=== PATIENT | female | born 1985 | race Caucasian/White ===

== ENCOUNTER 2020-01-01 14:49 | Emergency (ER) | payer OTHER ==
[2020-01-01] MEDS ORDERED: Sodium Chloride 0.9% 1,000 ML IV ONE (15:23)
--- NOTE | 2020-01-01 15:37 | EDM.PDOC ---
ED HPI GENERAL MEDICAL PROBLEM - General Chief Complaint: Neurological Problem Stated Complaint: HEADACHE, BLURRED VISION Time Seen by Provider: 01/01/20 15:05 Source of Information: Reports: Patient History Limitations: Reports: No Limitations - History of Present Illness INITIAL COMMENTS - FREE TEXT/NARRATIVE: This 34 yo female patient reports to the ED with a headache, intermittent blurred vision and difficulties remembering things. The patient reports she was diagnosed with COVID on November 09 and started to feel better about 2 weeks after the diagnosis. The patient reports she has noticed she has continued to have headaches, blurred vision and memory difficulties. The patient is is [place] for [employer] and was advised to come to the ED due to her having di fficulties remembering people she has known in the past. The patient reports that she has an up coming appointment with Neurology and NeuroPsych, but is concerned as her symptoms seem to be getting worse. The patient reports she did also loose her senses of taste and smell with the COVID, and has not had return of those senses at this time. Duration: Day(s):, Intermittent Location: Reports: Head Quality: Reports: Other Severity: Moderate Improves with: Reports: None Worsens with: Reports: None Context: Reports: Other Associated Symptoms: Reports: No Other Symptoms Headache Pain Score (Numeric/FACES): 4 - Related Data Allergies Allergy/AdvReac Type Severity Reaction Status Date / Time amoxicillin Allergy Rash Verified 01/01/20 15:07 vancomycin Allergy Rash Verified 01/01/20 15:07 Home Meds: Home Meds . [No Known Home Meds] 01/01/20 [History] Past Medical History - Past Health History Medical/Surgical History: Denies Medical/Surgical History HEENT History: Reports: None Cardiovascular History: Reports: None Respiratory History: Reports: None Gastrointestinal History: Reports: None Genitourinary History: Reports: None [employer] History: Reports: None Musculoskeletal History: Reports: None Neurological History: Reports: None Psychiatric History: Reports: None Endocrine/Metabolic History: Reports: None Hematologic History: Reports: None Immunologic History: Reports: None Oncologic (Cancer) History: Reports: None Dermatologic History: Reports: None - Infectious Disease History Infectious Disease History: Reports: Chicken Pox - Past Surgical History Head Surgeries/Procedures: Reports: None Social & Family History - Family History Family Medical History: Noncontributory - Tobacco Use Smoking Status *Q: Never Smoker Second Hand Smoke Exposure: No - Caffeine Use Caffeine Use: Reports: None - Recreational Drug Use Recreational Drug Use: No ED ROS GENERAL - Review of Systems Review Of Systems: Comprehensive ROS is negative, except as noted in HPI. ED EXAM, NEURO - Physical Exam Exam: See Below Exam Limited By: No Limitations General Appearance: Alert, WD/WN, Moderate Distress Eye Exam: Bilateral Eye: EOMI, Normal Inspection, PERRL Ears: Normal External Exam, Normal Canal, Hearing Grossly Normal, Normal TMs Nose: Normal Inspection, Normal Mucosa, No Blood Throat/Mouth: Normal Inspection, Normal Lips, Normal Teeth, Normal Gums, Normal Oropharynx, Normal Voice, No Airway Compromise Head Exam: Atraumatic, Normocephalic Neck: Normal Inspection, Supple, Non-Tender, Full Range of Motion Respiratory/Chest: No Respiratory Distress, Lungs Clear, Normal Breath Sounds, No Accessory Muscle Use, Chest Non-Tender Cardiovascular: Normal Peripheral Pulses, Regular Rate, Rhythm, No Edema, No Gallop, No JVD, No Murmur, No Rub GI/Abdominal: Normal Bowel Sounds, Soft, Non-Tender, No Organomegaly, No Distention, No Abnormal Bruit, No Mass (Female) Exam: Deferred Rectal (Female) Exam: Deferred Neurological: Alert, Normal Mood/Affect, Normal Dorsiflexion, CN II-XII Intact, Normal Plantar Flexion, Normal Gait, Normal Reflexes, No Motor/Sensory Deficits, Oriented x 3 Back Exam: Normal Inspection, Full Range of Motion, NT Extremities: Normal Inspection, Normal Range of Motion, Non-Tender, No Pedal Edema, Normal Capillary Refill Psychiatric: Normal Affect, Normal Mood Skin Exam: Warm, Dry, Intact, Normal Color, No Rash Course - Vital Signs Last Recorded V/S: Last Vital Signs Temp 36.8 C 01/01/20 14:56 Pulse 99 01/01/20 14:56 Resp 18 01/01/20 14:56 BP 117/73 01/01/20 14:56 Pulse Ox 99 01/01/20 14:56 - Orders/Labs/Meds Orders: Active Orders 24 hr Category Date Time Status [facility] [REF] Urgent Lab 01/01/20 15:31 Received Labs: Laboratory Tests 01/01/20 01/01/20 Range/Units 15:31 15:31 WBC 4.9 L (5.0-10.0) 10^3/uL RBC 4.52 (4.2-5.4) 10^6/uL Hgb 13.5 (12.0-16.0) g/dL Hct 39.7 (37.0-47.0) % MCV 87.8 (80-100) fL MCH 29.9 (27.0-34.0) pg MCHC 34.0 (33.0-35.0) g/dL Plt Count 184 (150-450) 10^3/uL Neut % (Auto) 50.1 (42.2-75.2) % Lymph % (Auto) 36.9 (20.5-50.1) % Evans % (Auto) 11.4 H (2-8) % Eos % (Auto) 1.2 (1.0-3.0) % Baso % (Auto) 0.4 (0.0-1.0) % Sodium 138 (136-145) mmol/L Potassium 3.6 (3.5-5.1) mmol/L Chloride 104 (98-107) mmol/L Carbon Dioxide 29 (21-32) mmol/L Anion Gap 8.6 (7-13) mEq/L BUN 19 H (7-18) mg/dL Creatinine 0.74 (0.55-1.02) mg/dL Est Cr Clr Drug Dosing 97.06 mL/min Estimated GFR (MDRD) > 60 BUN/Creatinine Ratio 25.7 (No establ ref range) Glucose 112 H (74-99) mg/dL Calcium 8.6 (8.5-10.1) mg/dL Total Bilirubin 0.3 (0.2-1.0) mg/dL AST 13 L (15-37) U/L ALT 23 (14-59) U/L Alkaline Phosphatase 44 L (46-116) U/L Total Protein 7.4 (6.4-8.2) g/dL Albumin 3.9 (3.4-5.0) g/dL Globulin 3.5 Albumin/Globulin Ratio 1.1 Meds: Medications Discontinued Medications Generic Name Dose Route Start Last Admin Trade Name Freq PRN Reason Stop Dose Admin Sodium Chloride 1,000 mls @ 999 mls/hr 01/01/20 15:23 01/01/20 15:34 Normal Saline IV 01/01/20 16:23 999 mls/hr .BOLUS ONE Administration Ketorolac Tromethamine 30 mg 01/01/20 15:59 01/01/20 16:03 Toradol IVPUSH 01/01/20 16:00 30 mg ONETIME ONE Administration Departure - Departure Time of Disposition: 16:45 Disposition: Home, Self-Care 01 Condition: Fair Clinical Impression: Migraine headache Qualifiers: Migraine type: unspecified Status migrainosus presence: without status migrainosus Intractability: intractable Qualified Code(s): G43.919 - Migraine, unspecified, intractable, without status migrainosus - Discharge Information *PRESCRIPTION DRUG MONITORING PROGRAM REVIEWED*: Not Applicable *COPY OF PRESCRIPTION DRUG MONITORING REPORT IN PATIENT JIMENA: Not Applicable Instructions: Migraine Headache, [id number] Forms: ED Department Discharge Care Plan Goals: The patient was advised of the examination, lab and CT results during the visit. The patient was given a liter of IV fluid and an IV dose of Toradol while in the ED. The patient was encouraged to increase her oral fluid intake. The patient may take Tylenol or ibuprofen as directed. If the patient has any additional symptoms or concerns, the patient should either return to the emergency department or visit her primary care facility. Sepsis Event Note (ED) - Evaluation Sepsis Screening Result: No Definite Risk - Focused Exam Vital Signs: Vital Signs Temp Pulse Resp BP Pulse Ox 01/01/20 14:56 36.8 C 99 18 117/73 99 - My Orders Last 24 Hours: My Active Orders 01/01/20 15:31 [facility] [REF] Urgent - Assessment/Plan Last 24 Hours: My Active Orders 01/01/20 15:31 [facility] [REF] Urgent
--- NOTE | 2020-01-01 15:54 | CT ---
EXAMINATION: Head wo Cont SEX: Female AGE: 34 years CLINICAL HISTORY: 34-year-old 124 pound female with HEADACHES and MEMORY DIFFICULTIES (patient tested "positive" COVID 19 on 10 November 2019). Scan technique: Volume acquisition of data emergency unenhanced CT scan of the head and brain obtained with the patient lying supine on the Siemens multislice scanner [place], [place]. All data archived in the PACS system for storage, reformatting axial/sagittal/coronal planes and study (bone/brain windows). Interpretation: Negative. 1. Uniformly thick bony calvarium. Symmetric clear pneumatization of the paranasal/mastoid sinuses i.e. no inflammatory sinusitis. 2. No sign of brain contusion or epidural/subdural hematoma. 3. Symmetric ordoñez-white matter pattern and underlying mirror-image normal ventricular system. No sign of cerebral edema or hydrocephalus. Physiologic midline pineal calcifications. 4. No supratentorial or posterior fossa mass lesion. Cerebellum and brainstem unremarkable. 5. No focal areas of ischemic infarct, signs of encephalomalacia, or arachnoid cyst. 6. No sign of acute intracerebral, intraventricular or subarachnoid bleed.
[2020-01-01] MEDS ORDERED: Ketorolac 30 MG/ML SDV IVPUSH ONE (15:59)
[2020-01-01 16:07] LABS: ANION GAP 8.6 mEq/L (7-13); CHLORIDE,CL 104 mmol/L (98-107); SODIUM,NA 138 mmol/L (136-145)
== END 2020-01-01 16:53 | disposition home or self-care (01) ==
LOC: DL.ED 14:49
DX: G43.919 Migraine, unspecified, intractable, without status migrainosus (principal); Z88.1 Allergy status to other antibiotic agents
CPT/HCPCS: 36415; 70450; 80053; 85025; 86788; 96374; 99284; J1885; J7030; 99283